=== PATIENT | male | born 1990 ===

== ENCOUNTER 2017-07-24 01:23 | Emergency (ER) | payer SELFPAY ==
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
[2017-07-24 01:31] VITALS: BP 108/84
== END 2017-07-24 01:55 ==
LOC: EDUNIT#
DX: S40.812A Abrasion of left upper arm, initial encounter (principal); F10.921 Alcohol use, unspecified with intoxication delirium; Y09 Assault by unspecified means